=== PATIENT | male | born 1970 | race Caucasian/White ===

== ENCOUNTER 2023-11-09 11:35 | Day surgery (SDC) | payer OTHER ==
[~2023-11-09] VITALS: Ht 175.3 cm; Wt 86.2 kg
[2023-11-09 12:40] LABS: BASOPHILS % (AUTO) 0.4 % (0.0-2.0); EOSINOPHILS # (AUTO) 0.1 K/uL (0-0.4); EOSINOPHILS % (AUTO) 2.3 % (0.0-4.0); HEMATOCRIT 45.7 % (36-52); HEMOGLOBIN 15.4 g/dL (12.0-18.0); LYMPHOCYTES # (AUTO) 1.5 K/uL (2.0-11.5); LYMPHOCYTES % (AUTO) 23.4 % (20.5-51.1); MEAN CORPUSCULAR HEMOGLOBIN 30 pg (27-31); MEAN CORPUSCULAR HGB CONC 34 g/dL (33-37); MEAN CORPUSCULAR VOLUME 89.3 fL (80-94); MONOCYTES # (AUTO) 0.6 K/uL (0.8-1.0); MONOCYTES % (AUTO) 9.8 % (1.7-9.3); NEUTROPHILS % (AUTO) 64.1 % (42.2-75.2); PLATELET COUNT (AUTO) 228 K/uL (140-450); RED BLOOD CELL COUNT(AUTO) 5.11 MIL/uL (4.20-6.10); RED CELL DISTRIBUTION WIDTH 13.6 % (11.6-13.7); WHITE BLOOD COUNT (AUTO) 6.3 K/uL (4.8-10.8)
[2023-11-09] MEDS ORDERED: HYDROmorphone 1 MG/ML AMP IVP PRN (12:50)
[2023-11-09] MEDS ORDERED: LACTATED RINGERS 1,000 ML IV SCH (12:50)
[2023-11-09] MEDS ORDERED: ONDANSETRON 4 MG/2 ML VIAL IVP PRN (12:50)
[2023-11-09 13:05] LABS: ALBUMIN 3.6 g/dL (3.4-5.0); ANION GAP 13.4 (8-16); CALCIUM 9.3 mg/dL (8.5-10.1); CARBON DIOXIDE 26.8 mmol/L (21-32); POTASSIUM 4.2 mmol/L (3.5-5.1); TOTAL BILIRUBIN 1.2 mg/dL (0.0-1.0)
[2023-11-09] MEDS ORDERED: fentaNYL citrate 0.05 MG/ML VIAL ONE (13:07)
[2023-11-09] MEDS ORDERED: MIDAZOLAM 2 MG/2 ML VIAL ONE (13:07)
[2023-11-09] MEDS ORDERED: PROPOFOL 200 MG/20 ML VIAL IV ONE ×2 (13:31)
== END 2023-11-09 14:58 | disposition home or self-care (01) ==
LOC: MDS 11:35 → MMU 11:40 → MDS 14:58
PROVIDERS: ATTEND Internal Medicine Gastroenterology
DX: Z12.11 Encounter for screening for malignant neoplasm of colon (principal); J45.909 Unspecified asthma, uncomplicated; K57.30 Diverticulosis of large intestine without perforation or abscess without bleeding
CPT/HCPCS: 36415; 45385; 71045; 80053; 85025; 93005; J2250; J2704; J3010